=== PATIENT | female | born 1995 | race Caucasian/White ===

== ENCOUNTER → 2017-08-28 | Outpatient (CLI) | payer OTHER ==
--- NOTE | 2017-08-29 15:27 | US ---
EXAMINATION TYPE: US pelvic complete DATE OF EXAM: 08/28/2017 COMPARISON: US CLINICAL HISTORY: Unspecified ovarian left side [id number]; intermittent left pelvic pain x 2 months TECHNIQUE: Transabdominal (TA) Date of LMP: 08/03/2017 EXAM MEASUREMENTS: Uterus: 7.8 x 4.8 x 2.0 cm Endometrial Stripe: 0.5 cm Right Ovary: 3.5 x 2.9 x 1.3 cm Left Ovary: 2.5 x 1.7 x 1.6 cm 1. Uterus: Anteverted 2. Endometrium: wnl 3. Right Ovary: wnl 4. Left Ovary: wnl, small follicles are seen Spectral, color and waveform doppler imaging shows good arterial and venous flow within the ovaries ; there is no evidence for ovarian torsion. 5. Bilateral Adnexa: wnl 6. Posterior cul-de-sac: wnl 7. At left lateral pelvic pain peristalsing bowel is noted. IMPRESSION: Unremarkable transabdominal pelvic ultrasound. Peristalsing bowel is noted at the patient 's stated area of pain in the left lower quadrant.
== END ==
LOC: RADUSWWP 15:25
PROVIDERS: ATTEND Family Medicine
DX: N83.202 Unspecified ovarian cyst, left side (principal)
CPT/HCPCS: 76856

== ENCOUNTER → 2019-07-25 | Outpatient (CLI) | payer BC ==
--- NOTE | 2019-07-25 10:49 | XR ---
EXAMINATION TYPE: XR knee complete LT DATE OF EXAM: 07/25/2019 COMPARISON: NONE HISTORY: Pain TECHNIQUE: Four views are submitted. FINDINGS: Joint spaces are preserved. Osseous structures are intact. No acute fracture seen. Small amount of fluid in the suprapatellar bursa. IMPRESSION: 1. No acute fracture or dislocation. There is a small amount of fluid in the suprapatellar bursa. If symptoms persist or concern for internal derangement correlate with MRI.
== END | disposition home or self-care (01) ==
LOC: RADXRYALE 10:02
PROVIDERS: ATTEND Physician Assistant Medical
DX: M25.562 Pain in left knee (principal)